=== PATIENT | male | born 1980 | race Caucasian/White ===

== ENCOUNTER 2016-10-12 09:38 | Emergency (ER) | payer OTHER ==
[~2016-10-12] VITALS: Ht 185.4 cm; Wt 108.9 kg
[~2016-10-12 09:38] MED LIST: DOXY100C2 PO
--- NOTE | 2016-10-12 10:10 | RAD ---
Chest, 2 views, 10/12/2016: History: Right-sided chest pain and cough The heart size and pulmonary vascularity are normal. No pulmonary infiltrates are seen. There is no evidence of pleural fluid. IMPRESSION: No acute cardiopulmonary abnormality is detected.
[2016-10-12] MEDS ORDERED: IPRATRPIUM/ALBUTEROL 0.5/2.5MG 3 ML NEBU. NEB ONE (10:45)
[2016-10-12] MEDS ORDERED: PREDNISONE 20 MG TABLET PO ONE (10:45)
--- NOTE | 2016-10-12 10:49 | PHYS DOC ---
Past Medical History Past Medical History: Other Additional Past Medical Histor: POLY Past Surgical History: Other Additional Past Surgical Histo: SPINAL DECOMPRESSION,ELBOW SURG Alcohol Use: Occasionally Drug Use: None Adult General Chief Complaint Chief Complaint: Congestion HPI HPI Patient is a 36 year old female presents emergency department stating for the last week he said. He states that he is having shortness of breath with exertion. He states that he has generalized body aches and discomfort as well. He states that he has been having a productive cough that has specks of blood in it. Patient states he has had right upper lung pain and discomfort. He has been using his mother's inhaler, albuterol which has helped minimal. Patient denies any history of smoking. Patient does state she has a primary care physician. Review of Systems Review of Systems Constitutional: Denies fever or chills [] Eyes: Denies change in visual acuity, redness, or eye pain [] HENT: nasal congestion denies sore throat [] Respiratory: cough with shortness of breath [] Cardiovascular: No additional information not addressed in HPI [] GI: Denies abdominal pain, nausea, vomiting, bloody stools or diarrhea [] : Denies dysuria or hematuria [] Musculoskeletal: Denies back pain or joint pain [] Integument: Denies rash or skin lesions [] Neurologic: Denies headache, focal weakness or sensory changes [] Current Medications Current Medications Current Medications Medications (Trade) Dose Ordered Sig/Linwood Start Time Stop Time Status Last Admin Dose Admin Albuterol/ Ipratropium (Duoneb) 3 ml 1X ONCE 10/12/16 10:45 10/12/16 10:48 DC 10/12/16 11:04 3 ML Prednisone (Prednisone) 40 mg 1X ONCE 10/12/16 10:45 10/12/16 10:48 DC 10/12/16 11:01 40 MG Allergies Allergies Allergies Coded Allergies Type Severity Reaction Last Updated Verified No Known Drug Allergies 02/12/15 No Physical Exam Physical Exam Constitutional: Well developed, well nourished, no acute distress, non-toxic appearance. [] HENT: Normocephalic, atraumatic, bilateral external ears normal, oropharynx moist, no oral exudates, nose normal. Bilateral tympanic membranes appear to be normal. Patient with left maxillary sinus tenderness. Eyes: PERRLA, EOMI, conjunctiva normal, no discharge. [] Neck: Normal range of motion, no tenderness, supple, no stridor. [] Cardiovascular:Heart rate regular rhythm, no murmur [] Lungs & Thorax: Bilateral breath sounds wheezes noted per right lower lung. Skin: Warm, dry, no erythema, no rash. [] Back: No tenderness Extremities: No tenderness, no cyanosis, no clubbing, ROM intact, no edema. [] Neurologic: Alert and oriented X 3, normal motor function, normal sensory function, no focal deficits noted. [] Psychologic: Affect normal, judgement normal, mood normal. [] Current Patient Data Vital Signs Vital Signs Date Time Temp Pulse Resp B/P Pulse Ox O2 Delivery O2 Flow Rate FiO2 10/12/16 12:19 83 20 125/96 100 Room Air 10/12/16 09:43 99.1 99.1 Lab Values Laboratory Tests Test 10/12/16 10:56 D-Dimer (Greta) 0.54ug/mlFEU (0.00-0.50) H EKG EKG [] Radiology/Procedures Radiology/Procedures [facility] [address] [place] [address] IMAGING REPORT Signed PATIENT: ANAYA BELLO ACCOUNT: [id number] : 1980 LOCATION: ER AGE: 36 SEX: M EXAM STATUS: PRE ER ORD. PHYSICIAN: MANI WISEMAN NP REASON: cough, blood tinge sputum PROCEDURE: CHEST PA & LATERAL Chest, 2 views, 10/12/2016: History: Right-sided chest pain and cough The heart size and pulmonary vascularity are normal. No pulmonary infiltrates are seen. There is no evidence of pleural fluid. IMPRESSION: No acute cardiopulmonary abnormality is detected. DICTATED and SIGNED BY: JOHN SUBRAMANIAN MD DATE: 10/12/16 1007 CC: NELLIE BETTENCOURT MD; MANI WISEMAN NP ~ [] Course & Med Decision Making Course & Med Decision Making Pertinent Labs and Imaging studies reviewed. (See chart for details) Patient's d-dimer was slightly elevated although his Perc score is 0. Patient will be discharged home with a diagnosis of acute sinusitis he will be provided with Augmentin, prednisone for shortness of air as well as albuterol for shortness of air and wheezing. Patient agrees with discharge instructions treatment regimens and follow-up recommendations. Patient was reevaluated by Dr. Guardado agrees with treatment plan and regimen. Signs and symptoms to return back to emergency department as been provided. Dr. GUARDADO DOCUMENTATION 36-year-old male presenting to the emergency department today with cough and chest pain. I sat down and discussed with the patient his risk for blood clotting disorders. He denies a personal family history for blood clotting disorders. He is having very small streaks of blood in his cough which is likely related to his URI. He has not had unilateral leg swelling or signs or symptoms of a DVT. He is not tachycardic nor is he hypoxic. I do not believe that the patient has a pulmonary embolism based on my clinical presentation. He time or was sent unfortunately however just at the upper limits of normal. I feel given the risk of radiation and effort toxicity of angiography that it is in the patient's better interest to discharge without CT angiography. [] Dragon Disclaimer Dragon Disclaimer This electronic medical record was generated, in whole or in part, using a voice recognition dictation system. Departure Departure Impression: Primary Impression: Sinusitis, acute Disposition: HOME, SELF-CARE Condition: STABLE Referrals: NELLIE BETTENCOURT MD (PCP) Patient Instructions: Sinusitis, [id number] Additional Instructions: Home to rest. Medications as prescribed. Drink plenty of fluids such as water, Gatorade or propel. Tylenol or ibuprofen for fever chills or generalized body aches and discomfort. Follow-up to primary care physician next 3-5 days. Return back to emergency prior signs symptoms of become worse. Scripts Prednisone 20 Mg [id number] Mg PO DAILY #10 TAB Prov:MANI WISEMAN NP 10/12/16 Albuterol Sulfate (Proair Hfa Inhaler)8.5 Gm Hfa.aer.ad1 Puff INH PRN Q6HRS PRN SHORTNESS OF BREATH #1 INHALER Prov:MNAI WISEMAN NP 10/12/16 Amoxicillin/Potassium Clav (Augmentin 875-125 Tablet)1 Each Tablet1 Tab PO BID # 20 TAB Prov:MANI WISEMAN NP 10/12/16 MANI WISEMAN NP Oct 12, 2016 10:49 BRUCE GUARDADO MD Oct 12, 2016 14:53
[2016-10-12] MEDS ORDERED: PRED20TA PO (11:58)
[2016-10-12] MEDS ORDERED: AMOX1TAB61 PO (11:58)
[2016-10-12] MEDS ORDERED: PROAIR HFA8.5 GM INH (11:58)
[2016-10-12 12:19] VITALS: BP 125/96
== END 2016-10-12 12:19 | disposition home or self-care (01) ==
LOC: ER 09:38
DX: J01.90 Acute sinusitis, unspecified (principal)
CPT/HCPCS: 36415; 71020; 85379; 94250; 94640; 99285; J7512; J7620

== ENCOUNTER 2019-06-13 17:39 | Emergency (ER) | payer BC, OTHER ==
[~2019-06-13] VITALS: Ht 185.4 cm; Wt 131.5 kg
[~2019-06-13 17:39] MED LIST changes: +ALBU2.5V8 INH; +AMOX1TAB61 PO; +PRED20TA PO
[2019-06-13 17:54] VITALS: BP 156/89
--- NOTE | 2019-06-13 18:20 | RAD ---
Study: HAND RIGHT 3V Indication: Hand injury. Comparison: None available. Findings: Degraded study secondary to casting material along the ulnar aspect of the hand/wrist/distal forearm. Mildly displaced fracture at the distal shaft of the fifth metacarpal with mild ulnar and dorsal apex angulation. No intra-articular extension is seen. No acute fracture identified elsewhere throughout the right hand or wrist. Impression: Mildly displaced/angulated fracture at the distal shaft of the fifth metacarpal. Electronically signed by: SANCHEZ DE PAZ MD (06/13/2019 6:18 PM) [id number]
--- NOTE | 2019-06-13 18:36 | PHYS DOC ---
Past Medical History Past Medical History: No Pertinent History, Other Additional Past Medical Histor: POLY Past Surgical History: Other Additional Past Surgical Histo: SPINAL DECOMPRESSION,ELBOW SURG Alcohol Use: Occasionally Drug Use: None Adult General Chief Complaint Chief Complaint: HAND PROBLEM HPI HPI Patient is a 39 year old male patient with no significant medical history who presents to the ED today complaining of right hand pain rated at 7 out of 10 described as throbbing and intermittent. Patient states one week ago he frac tured his right hand, he was seen at [facility], he was splinted and asked to follow up with an orthopedic doctor, he states he has an appointment next week. He states he was taking a shower this morning when he slid and fell down hitting his right hand on the bathtub. Patient denies hitting his head on the ground. Denies any loss of consciousness. Review of Systems Review of Systems Constitutional: Denies fever or chills [] Musculoskeletal: Reports right hand pain Integument: Denies rash or skin lesions [] Neurologic: Denies headache, focal weakness or sensory changes [] All other systems were reviewed and found to be within normal limits, except as documented in this note. Allergies Allergies Allergies Coded Allergies Type Severity Reaction Last Updated Verified No Known Drug Allergies 02/12/15 No Physical Exam Physical Exam Constitutional: Well developed, well nourished, no acute distress, non-toxic appearance. [] Skin: Warm, dry, no erythema, no rash. [] Back: No tenderness, no CVA tenderness. [] Extremities: Right hand is splinted, full range of motion to the right fingers. Cap refill less than 2 seconds the right fingers. Sensation intact to the right fingers. Neurologic: Alert and oriented X 3, normal motor function, normal sensory function, no focal deficits noted. [] Psychologic: Affect normal, judgement normal, mood normal. [] Current Patient Data Vital Signs Vital Signs Date Time Temp Pulse Resp B/P (MAP) Pulse Ox O2 Delivery O2 Flow Rate FiO2 06/13/19 17:54 98.7 82 18 156/89 (111) 99 Room Air 98.7 EKG EKG [] Radiology/Procedures Radiology/Procedures []PROCEDURE: HAND RIGHT 3V Study: HAND RIGHT 3V Indication: Hand injury. Comparison: None available. Findings: Degraded study secondary to casting material along the ulnar aspect of the hand/wrist/distal forearm. Mildly displaced fracture at the distal shaft of the fifth metacarpal with mild ulnar and dorsal apex angulation. No intra-articular extension is seen. No acute fracture identified elsewhere throughout the right hand or wrist. Impression: Mildly displaced/angulated fracture at the distal shaft of the fifth metacarpal. Electronically signed by: SANCHEZ DE PAZ MD (06/13/2019 6:18 PM) [facility] DICTATED and SIGNED BY: SANCHEZ DE PAZ MD DATE: 06/13/191817 Course & Med Decision Making Course & Med Decision Making Pertinent Labs and Imaging studies reviewed. (See chart for details) This is a 39-year-old male patient presenting to the ED today with right hand pain. Patient fractured his right hand one week ago, today he fell down and hit his right hand on a backboard. Right hand x-rays interpreted by radiologist were noted for-Mildly displaced/angulated fracture at the distal shaft of the fifth metacarpal. Patient admits this is the same injury he had when he was seen at [facility] 1 week ago. He is already splinted neurovascular exam done by me to the right hand is intact. Ktracs shows he has norco. He was discharged to home. Follow-up with his orthopedic doctor as soon as he can. Dragon Disclaimer Dragon Disclaimer This electronic medical record was generated, in whole or in part, using a voice recognition dictation system. Departure Departure Impression: Primary Impression: Fracture of fifth metacarpal bone Disposition: HOME, SELF-CARE Condition: STABLE Referrals: NELLIE BETTENCOURT MD (PCP) Follow up with the orthopedic doctor as scheduled Patient Instructions: Hand Fracture, Fifth Metacarpal Additional Instructions: You were evaluated in the emergency room, your right hand x-rays were noted for- Mildly displaced/angulated fracture at the distal shaft of the fifth metacarpal which is from last weeks injury. No new injuries. Please follow up with your orthopedic doctor as soon as you can Problem Qualifiers Primary Impression: Fracture of fifth metacarpal bone Encounter type: initial encounter Fracture type: closed Metacarpal location: shaft Fracture alignment: displaced Laterality: right Qualified Codes: S62.326A - Displaced fracture of shaft of fifth metacarpal bone, right hand, initial encounter for closed fracture [facility] [employer] Jun 13, 2019 18:36
== END 2019-06-13 18:53 | disposition home or self-care (01) ==
LOC: ER 17:39
DX: S62.326A Displaced fracture of shaft of fifth metacarpal bone, right hand, initial encounter for closed fracture (principal); W18.39XA Other fall on same level, initial encounter; Y93.E1 Activity, personal bathing and showering; Y92.89 Other specified places as the place of occurrence of the external cause; Y99.8 Other external cause status
CPT/HCPCS: 73130; 99284